=== PATIENT | female | born 1975 | race Caucasian/White ===

== ENCOUNTER 2017-09-02 11:31 | Emergency (ER) | payer SELFPAY ==
[~2017-09-02] VITALS: Ht 162.6 cm; Wt 77.1 kg
[~2017-09-02 11:31] MED LIST: ATENOLOL50 MG PO; MEDROXYPRO150 MG/11
[2017-09-02] MEDS ORDERED: HYDROCODONE/APAP 10MG-325MG TAB PO ONE (11:45)
[2017-09-02] MEDS ORDERED: IBUPROFEN 400 MG TAB PO ONE (11:45)
--- NOTE | 2017-09-02 13:59 | Diagnostic Imaging Report ---
PROCEDURE:X-RAY RIGHT KNEE, THREE OR MORE VIEWS COMPARISON:None. INDICATIONS:FALL, RIGHT KNEE PAIN FINDINGS: The bones are well-mineralized. There are no fractures, subluxations, lytic or blastic lesions. There is no evidence of a joint effusion. CONCLUSION: No acute radiographic abnormality. Dictated by: Ke Khanna M.D. on 09/02/2017 at 14:01 Electronically approved by: Ke Khanna M.D. on 09/02/2017 at 14:01
== END 2017-09-02 14:30 | disposition home or self-care (01) ==
LOC: ER 11:31
DX: G89.11 Acute pain due to trauma (principal); S89.91XA Unspecified injury of right lower leg, initial encounter; X50.1XXA Overexertion from prolonged static or awkward postures, initial encounter; Y99.0 Civilian activity done for income or pay; I10 Essential (primary) hypertension; E11.9 Type 2 diabetes mellitus without complications
CPT/HCPCS: 99283

== ENCOUNTER 2024-06-12 17:44 | Emergency (ER) | payer OTHER ==
[~2024-06-12] VITALS: Ht 162.6 cm; Wt 77.1 kg
[2024-06-12] MEDS ORDERED: ULTRAM 50MG50 MG PO (19:33)
[2024-06-12] MEDS: TRAMADOL HCL 50 MG TAB PO STA (20:00)
[2024-06-12 20:01] VITALS: PULSE 69; RESP 16; TEMP 98.2; O2SAT 97
== END 2024-06-12 20:05 | disposition home or self-care (01) ==
LOC: ER 18:05
DX: M79.651 Pain in right thigh (principal); I10 Essential (primary) hypertension; E11.9 Type 2 diabetes mellitus without complications; E78.5 Hyperlipidemia, unspecified
CPT/HCPCS: 93971; 99283